=== PATIENT | female | born 1995 | race Caucasian/White ===

== ENCOUNTER 2023-03-21 22:43 | Emergency (ER) | payer BC, OTHER ==
[~2023-03-21] VITALS: Ht 160 cm; Wt 127.0 kg
[2023-03-21 23:36] VITALS: BP 151/118; TEMP 98.1
[2023-03-21] MEDS ORDERED: CODEINE/PROMETHAZINE HCL 5 ML UDC PO STA (23:43)
[2023-03-22] MEDS ORDERED: MAG HYDROX/AL HYDROX/SIMETH 30 ML UDC PO ONE
[2023-03-22] MEDS ORDERED: ONDANSETRON 4 MG TAB.RAPDIS SL ONE
[2023-03-22] MEDS ORDERED: LIDOCAINE VISCOUS 2% UD 15 ML UDC MM ONE
[2023-03-22] MEDS ORDERED: LIDOCAINE VISCOUS 2% UD 15 ML UDC ONE (00:01)
[2023-03-22] MEDS ORDERED: CODEINE/PROMETHAZINE HCL 5 ML UDC ONE (00:01)
[2023-03-22] MEDS ORDERED: MAG HYDROX/AL HYDROX/SIMETH 30 ML UDC ONE (00:01)
[2023-03-22] MEDS ORDERED: ONDANSETRON 4 MG TAB.RAPDIS ONE (00:02)
[2023-03-22] MEDS ORDERED: PROM6.2516 PO (00:40)
[2023-03-22 01:16] VITALS: O2SAT 98
[2023-03-22] MEDS ORDERED: PROM118S5 PO (20:12)
== END 2023-03-22 01:17 | disposition home or self-care (01) ==
LOC: ER 22:59
DX: J06.9 Acute upper respiratory infection, unspecified (principal); R05.9 Cough, unspecified; R11.10 Vomiting, unspecified; R07.0 Pain in throat; K21.9 Gastro-esophageal reflux disease without esophagitis; F31.9 Bipolar disorder, unspecified; F41.9 Anxiety disorder, unspecified
CPT/HCPCS: 99284; Q0162

== ENCOUNTER 2023-03-22 16:39 | Emergency (ER) | payer BC, MEDICAID ==
[~2023-03-22] VITALS: Ht 160 cm; Wt 127.0 kg
[~2023-03-22 16:39] MED LIST: PROM6.2516 PO
[2023-03-22] MEDS ORDERED: ALBUTEROL FS 2.5 MG/3 ML VIAL.NEB NEB ONE (17:30)
[2023-03-22] MEDS ORDERED: IPRATROPIUM NEB FS 0.5 MG/2.5 ML AMPUL.NEB NEB ONE (17:30)
[2023-03-22] MEDS ORDERED: ALBUTEROL FS 2.5 MG/3 ML VIAL.NEB ONE (17:48)
[2023-03-22 17:55] VITALS: O2SAT 96
[2023-03-22 18:14] VITALS: O2SAT 100
[2023-03-22 18:35] LABS: BASOPHILS % (AUTO) 0.8 % (0.0-2.0); EOSINOPHILS # (AUTO) 0.2 K/uL (0.0-0.7); EOSINOPHILS % (AUTO) 4.3 % (0.0-6.0); HEMATOCRIT 36 % (33-45); LYMPHOCYTES # (AUTO) 1.3 K/uL (0.8-4.8); LYMPHOCYTES % (AUTO) 22.6 % (20.0-44.0); MEAN CORPUSCULAR HEMOGLOBIN 30 PG (26.0-33.0); MEAN CORPUSCULAR HGB CONC 33 g/dl (31.0-36.0); MEAN CORPUSCULAR VOLUME 90 fL (82-100); MONOCYTES # (AUTO) 0.4 K/uL (0.1-1.30); MONOCYTES % (AUTO) 7.2 % (2.0-12.0); NEUTROPHILS # (AUTO) 3.8 K/uL (1.8-8.9); NEUTROPHILS % (AUTO) 65.1 % (43.0-81.0); PLATELET COUNT (AUTO) 220 K/uL (150-450); RED BLOOD CELL COUNT(AUTO) 4.01 MIL/uL (4.0-5.2); RED CELL DISTRIBUTION WIDTH 13.9 % (11.5-15.0); WHITE BLOOD COUNT (AUTO) 5.8 K/uL (4.3-11.0)
[2023-03-22 19:01] LABS: CALCIUM, SERUM 8.8 mg/dL (8.5-10.1); CREATININE 0.7 mg/dL (0.6-1.3); POTASSIUM 3.8 mmol/L (3.5-5.1)
[2023-03-22 19:07] LABS: ALBUMIN 3.5 g/dL (3.4-5.0); BILIRUBIN,TOTAL 0.2 mg/dL (0.2-1.0); TOTAL PROTEIN, SERUM 7.3 g/dL (6.4-8.2)
[2023-03-22] MEDS ORDERED: PROM118S5 PO (20:12)
[2023-03-22 21:42] VITALS: BP 142/78; TEMP 98.2; O2SAT 100
== END 2023-03-22 20:50 | disposition home or self-care (01) ==
LOC: ER 16:41
DX: J06.9 Acute upper respiratory infection, unspecified (principal); R10.2 Pelvic and perineal pain; K21.9 Gastro-esophageal reflux disease without esophagitis; F31.9 Bipolar disorder, unspecified; F41.9 Anxiety disorder, unspecified; Z96.641 Presence of right artificial hip joint; Z20.822 Contact with and (suspected) exposure to COVID-19
CPT/HCPCS: 99284; 71045; 87426; 87804 ×2; 85025; 80048; 80076; 36415; 84702; 94640; C9803

== ENCOUNTER 2023-05-17 00:43 | Emergency (ER) | payer BC, MEDICAID ==
[~2023-05-17] VITALS: Ht 160 cm; Wt 127.0 kg
[~2023-05-17 00:43] MED LIST changes: +PROM118S5 PO
[2023-05-17 01:20] VITALS: TEMP 98.5
[2023-05-17] MEDS ORDERED: METRONIDAZOLE 500 MG TABLET ONE (01:28)
[2023-05-17] MEDS ORDERED: METRONIDAZOLE 500 MG TABLET PO ONE (01:30)
[2023-05-17 02:24] LABS: APPEARANCE,URINE SLIGHTLY CLOUDY (CLEAR); BILIRUBIN,URINE NEGATIVE (NEGATIVE); BLOOD, URINE NEGATIVE Ery/uL (NEGATIVE); COLOR,URINE DARK YELLOW (YELLOW); KETONES,URINE NEGATIVE (NEGATIVE); LEUKOCYTE ESTERASE ,URINE TRACE (NEGATIVE); NITRITE, URINE NEGATIVE (NEGATIVE); PH,URINE 5.5 (5.0-8.0); PROTEIN,URINE NEGATIVE (NEGATIVE); UGLUCOSE NEGATIVE (NEGATIVE); UROBILINOGEN,URINE 0.2 EU/dL (0.2)
[2023-05-17 02:27] LABS: ADD URINE CULTURE NO; BACTERIA,URINE Rare /HPF (None Seen); PREGNANCY TEST URINE QUAL NEGATIVE (NEGATIVE); RBC,URINE 0-2 /HPF (0-2); SQUAMOUS EPITHELIAL CELL,UR Few /HPF (None Seen)
[2023-05-17 02:57] VITALS: BP 141/77; O2SAT 98
[2023-05-19 01:11] LABS: CHLAMYDIA TRACHOMATIS NAA Negative (Negative); NEISSERIA GONORRHOEAE NAA Negative (Negative)
== END 2023-05-17 02:57 | disposition home or self-care (01) ==
LOC: ER 00:46
DX: A64 Unspecified sexually transmitted disease (principal); K21.9 Gastro-esophageal reflux disease without esophagitis; F31.9 Bipolar disorder, unspecified; F41.9 Anxiety disorder, unspecified
CPT/HCPCS: 81001; 84703-TC; 87491; 87591